=== PATIENT | male | born 1950 | race Caucasian/White ===

== ENCOUNTER 2022-05-13 15:08 | Outpatient (CLI) | payer BC | END 2022-05-13 15:09 | disposition home or self-care (01) | LOC: CSHMRI 15:08 → EDSEX 15:30 | PROVIDERS: ATTEND Neurological Surgery | DX: M54.50 Low back pain, unspecified (principal); M25.559 Pain in unspecified hip; M16.0 Bilateral primary osteoarthritis of hip; N32.3 Diverticulum of bladder; N21.0 Calculus in bladder; K57.30 Diverticulosis of large intestine without perforation or abscess without bleeding; M47.816 Spondylosis without myelopathy or radiculopathy, lumbar region | CPT/HCPCS: 72148; 72192 ==